=== PATIENT | male | born 1980 | race Caucasian/White ===

== ENCOUNTER → 2025-01-22 15:55 | Outpatient (REF) | payer OTHER, SELFPAY | LOC: RCS 15:55 | PROVIDERS: ATTENDING PHYSICIAN Registered Nurse Psychiatric/Mental Health, Adult; FAMILY PHYSICIAN Family Medicine | DX: R94.31 Abnormal electrocardiogram [ECG] [EKG] (principal) | CPT/HCPCS: 93005 ==